=== PATIENT | female | born 1995 | race Caucasian/White ===

== ENCOUNTER 2020-01-02 10:57 | Inpatient (IN) | payer OTHER ==
[~2020-01-02] VITALS: Ht 162.6 cm; Wt 46.4 kg
[2020-01-02 12:08] LABS: HEMATOCRIT 34.4 % (36.0-47.0); HEMOGLOBIN 11.7 g/dl (12.0-15.5); MEAN CORPUSCULAR HEMOGLOBIN 30.2 pg (27.0-33.0); MEAN CORPUSCULAR VOLUME 88.7 fl (80.0-96.0); PLATELET COUNT, AUTOMATED 628 10^3/uL (150-450); RED BLOOD COUNT 3.88 10^6/uL (4.00-5.40); WHITE BLOOD COUNT 12.8 10^3/uL (4.0-10.0)
[2020-01-02 12:32] LABS: AMPHETAMINES LEVEL URINE NEGATIVE (NEGATIVE); BARBITURATES URINE NEGATIVE (NEGATIVE); BENZODIAZEPINES URINE NEGATIVE (NEGATIVE); CANNABINOIDS URINE POSITIVE (NEGATIVE); COCAINE METABOLITE URINE NEGATIVE (NEGATIVE); METHADONE URINE NEGATIVE (NEGATIVE); OPIATES URINE NEGATIVE (NEGATIVE); PHENCYCLIDINE URINE NEGATIVE (NEGATIVE)
[2020-01-02] MEDS ORDERED: HYDR-643 PO (12:46)
[2020-01-02 12:52] LABS: ACETAMINOPHEN LEVEL < 2.0 UG/ML (10.0-30.0); ALBUMIN 3.7 GM/DL (3.2-5.2); ALT/SGPT 38 U/L (12-78); BILIRUBIN,DIRECT 0.1 MG/DL (0.0-0.2); BILIRUBIN,TOTAL 0.4 MG/DL (0.2-1.0); BLOOD UREA NITROGEN 8 MG/DL (7-18); CALCIUM LEVEL 8.9 MG/DL (8.5-10.1); CARBON DIOXIDE LEVEL 27 MEQ/L (21-32); CHLORIDE LEVEL 99 MEQ/L (98-107); CREATININE FOR GFR 0.61 MG/DL (0.55-1.30); ETHYL ALCOHOL (ETHANOL) < 0.003 % (0.000-0.010); GLOMERULAR FILTRATION RATE > 60.0 (>60); GLUCOSE, FASTING 95 MG/DL (70-100); SALICYLATE LEVEL < 1.7 MG/DL (5.0-30.0); SODIUM LEVEL 136 MEQ/L (136-145); THYROID STIMULATING HORMONE 0.326 uIU/ML (0.358-3.740); TOTAL PROTEIN 7.7 GM/DL (6.4-8.2)
[2020-01-02 13:07] LABS: HCG, SERUM QUALITATIVE NEGATIVE (NEGATIVE)
[2020-01-02] MEDS ORDERED: MICR1TAB7 PO (13:52)
[2020-01-02] MEDS ORDERED: POTASSIUM CHLORIDE 10 MEQ SR TABLET PO ONE (15:00)
[2020-01-02] MEDS ORDERED: MOM 30ML SUSPENSION UDC PO PRN (17:00)
[2020-01-02] MEDS ORDERED: traZODone 50 MG TAB PO PRN (17:00)
[2020-01-02 20:50] VITALS: BP 118/74
[2020-01-02] MEDS: ONDANSETRON 4 MG ORAL DISINTEGRATING TAB PO PRN (23:24)
[2020-01-02] MEDS: OLANZapine ORAL DISINTEGRATING TAB 5MG PO PRN (23:24)
[2020-01-02] MEDS ORDERED: LORazepam 2 MG TAB PO ONE (23:45)
[2020-01-03] MEDS ORDERED: LORazepam 1 MG TAB PO PRN
[2020-01-03 06:14] VITALS: BP 108/69
[2020-01-03 07:51] LABS: BASO % 0.2 % (0.0-1.0); EOS # 0.1 10^3/uL (0.0-0.5); EOS % 0.4 % (0.0-3.0); HEMATOCRIT 33.5 % (36.0-47.0); HEMOGLOBIN 11.3 g/dl (12.0-15.5); LYMPH # 3.1 10^3/uL (1.5-5.0); LYMPH % 27.4 % (24.0-44.0); MEAN CORPUSCULAR HEMOGLOBIN 30.5 pg (27.0-33.0); MEAN CORPUSCULAR HGB CONC 33.7 g/dl (32.0-36.5); MEAN CORPUSCULAR VOLUME 90.3 fl (80.0-96.0); MONO # 0.6 10^3/uL (0.0-0.8); MONO % 5.7 % (0.0-5.0); NEUTROPHILS # 7.4 10^3/uL (1.5-8.5); NEUTROPHILS % 65.9 % (36.0-66.0); PLATELET COUNT, AUTOMATED 575 10^3/uL (150-450); RED BLOOD COUNT 3.71 10^6/uL (4.00-5.40); WHITE BLOOD COUNT 11.2 10^3/uL (4.0-10.0)
[2020-01-03 08:14] LABS: BLOOD UREA NITROGEN 9 MG/DL (7-18); CALCIUM LEVEL 8.9 MG/DL (8.5-10.1); CARBON DIOXIDE LEVEL 29 MEQ/L (21-32); CHLORIDE LEVEL 100 MEQ/L (98-107); GLOMERULAR FILTRATION RATE > 60.0 (>60); GLUCOSE, FASTING 75 MG/DL (70-100); POTASSIUM SERUM 3.3 MEQ/L (3.5-5.1); SODIUM LEVEL 137 MEQ/L (136-145)
--- NOTE | 2020-01-03 09:26 | MHHPEPDOC ---
General Date Of Admission: Jan 02, 2020 Legal Status: 04.08 Chief Complaint "I was really down. History of Present Illness HISTORY OF THE PRESENT ILLNESS: Patient is a 24 -year-old , female, who presented to 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 The patient reports that she is become increasingly unable to care for herself and began to worry that she would herself. General: Well dressed with good hygiene Speech: Spontaneous and fluid Thought processes: Linear and logical Thought content: hopelessness Abstract reasoning, and computation: Intact Description of associations: Intact Description of abnormal or psychotic thoughts: denies SI at this time Judgment: fair Insight: fair Orientation: Alert and orientated 3 Recent and remote memory: Intact Attention span and concentration: Intact Fund of knowledge: Adequate Mood: "okay" Affect: dysthymic, constricted . Past Psychiatric History Previous Psychiatric Diagnosis: depression. Previous Psychiatric Admissions: denies. Suicide Attempts: denies. Psychiatric Follow-up: [facility]. Psychiatric medications: tried Lexapro the past, ineffective. Past Medical History Medical Problems No notable Family Medical/Psychiatric HX Psychiatric Disorders: No Addiction: No Suicide Attemps/Completions: No Addiction History other (Cannabis) Social History Childhood: "fine" from [place]. Abuse/Trauma: denies. Current Living Situation: lives with . Education: high school. Employment: unemployed. Social Support: few. Legal: none noted. Marital: no children. Assessment 24-year-old woman with a history of depression presents with very severe depressive symptoms Problem List Problems: (1) Major depressive disorder, single episode, severe with anxious distress Status: Acute Response to Treatment: Uncontrolled Problem Text: Start Wellbutrin 150 mg daily, discussed risk, benefits and potential side effects. Screens negative procedures and eating disorder (2) Cannabis abuse Status: Chronic (3) Malnutrition Status: Acute Problem Text: Monitor for re-feeding syndrome (4) Suicidal ideations Status: Resolved Initial Treatment Plan 1. Patient was admitted on a 04.08 status. 2. Complete history was obtained. 3. With patients permission, family will be contacted and database will be expanded. 4. Patients medication regimen will be reviewed and changed accordingly. 5. Patient will be provided with protected environment. 6. Patient will be treated with individual, group, and milieu therapies. 7. Patient will receive supportive psych-education. 8. Discharge planning will commence immediately. 9. Outpatient follow-up treatment will be strongly recommended. 10. The initial treatment plan will focus initially on: Depression. Risk for suicide. ESTIMATED LENGTH OF STAY: 2-3 DAYS. TIME SPENT COUNSELING AND COORDINATING INITIAL CARE: 30 minutes. Vital Signs Vital Signs Date Time Temp Pulse Resp B/P (MAP) Pulse Ox O2 Delivery O2 Flow Rate FiO2 01/03/20 06:14 98.1 68 14 108/69 (82) Room Air 01/02/20 20:50 96 Laboratory Data 24H Labs Laboratory Tests 2 01/02/20 11:54: Nucleated Red Blood Cells % (auto) 0.0, Anion Gap 10, Glomerular Filtration Rate > 60.0, Calcium Level 8.9, Total Bilirubin 0.4, Direct Bilirubin 0.1, Aspartate Amino Transf (AST/SGOT) 21, Alanine Aminotransferase (ALT/SGPT) 38, Alkaline Phosphatase 65, Total Protein 7.7, Albumin 3.7, Albumin/Globulin Ratio 0.9L, Thyroid Stimulating Hormone (TSH) 0.326L, Human Chorionic Gonadotropin, Qual NEGATIVE, Salicylates Level < 1.7L, Urine Opiates Screen NEGATIVE, Urine Methadone Screen NEGATIVE, Acetaminophen Level < 2.0L, Urine Barbiturates Screen NEGATIVE, Urine Phencyclidine Screen NEGATIVE, Urine Amphetamines Screen NEGATIVE, Urine Benzodiazepines Screen NEGATIVE, Urine Cocaine Metabolite Screen NEGATIVE, Urine Cannabinoids Screen POSITIVEH, Ethyl Alcohol Level < 0.003 01/03/20 07:32: Nucleated Red Blood Cells % (auto) 0.0, Anion Gap 8, Glomerular Filtration Rate > 60.0, Calcium Level 8.9, Immature Granulocyte % (Auto) 0.4, Neutrophils (%) (Auto) 65.9, Lymphocytes (%) (Auto) 27.4, Monocytes (%) (Auto) 5.7H, Eosinophils (%) (Auto) 0.4, Basophils (%) (Auto) 0.2, Neutrophils # (Auto) 7.4, Lymphocytes # (Auto) 3.1, Monocytes # (Auto) 0.6, Eosinophils # (Auto) 0.1, Basophils # (Auto) 0.0 CBC/BMP Laboratory Tests 01/02/20 11:54 01/03/20 07:32 Medications Scheduled Norethindrone-E.estradiol-Iron (Microgestin Fe 1.5-30 Tab) 1 Each Tablet, 1 TAB PO DAILY, (Reported) Allergies Coded Allergies: escitalopram (Verified Adverse Reaction, Unknown, N/V, 01/02/20) SABINA KANG DO Jan 03, 2020 09:26
[2020-01-03 16:08] VITALS: BP 100/64
[2020-01-03] MEDS ORDERED: MIRTAZAPINE 7.5MG PER 1/2 TABLET PO SCH (21:00)
[2020-01-04 06:20] VITALS: BP 131/80
--- NOTE | 2020-01-04 09:39 | MHIPNPDOC ---
[facility] Progress Note Progress Note DOS: 01/04/2020 Patient met with today with nurse present for telehealth evaluation due to COVID Crisis Events Overnight: multiple episodes of vomiting Group Attendance:: and frequent Symptom changes (psych ROS): Affective: improving depression and loss of interest Psychotic:[None today] Anxiety: still reports great anxiety with somatic symptoms Staff Report: patient appears quite somatic and preoccupied Medical ROS: [Gen: -fevers, chills] [Cardio: -chest pain, palpations] [[place]: -SOB, cough] [Neuro: -tremors, msk stiffness] [Derm: -rash] MSE: Vitals: Below General: [Well dressed with good hygiene] Speech: [Spontaneous and fluid] Thought processes: [Linear and logical] Thought content: more Future orientated Abstract reasoning, and computation: [Intact] Description of associations: [Intact] Description of abnormal or psychotic thoughts:[Denies any suicidal or homicidal ideation. Denies any auditory or visual hallucinations. Does not appear to be responding to internal stimuli. Does not appear to be endorsing any bizarre or paranoid ideation.] Judgment: improving Insight: improving Orientation: [Alert and orientated 3] Recent and remote memory: [Intact] Attention span and concentration: [Intact] Fund of knowledge: [Adequate] Mood: ["okay"] Affect: more euthymic Vital Signs Vital Signs Date Time Temp Pulse Resp B/P (MAP) Pulse Ox O2 Delivery O2 Flow Rate FiO2 01/04/20 06:20 98.1 82 16 131/80 (97) 01/03/20 06:14 Room Air 01/02/20 20:50 96 Current Medications Current Medications Medications (Trade) Dose Ordered Sig/Aury Route PRN Reason Start Time Stop Time Status Last Admin Dose Admin Acetaminophen (Tylenol Tab) 650 mg Q6HP PRN PO HEADACHE or DISCOMFORT 01/02/20 17:00 Home Med (Med Rec Complete!) ASDIRECTED XX 01/02/20 14:00 01/02/20 13:54 DC Ibuprofen (Advil) 400 mg Q6HP PRN PO PAIN 01/02/20 17:00 Lorazepam (Ativan) 1 mg Q8HP PRN PO ANXIETY 01/03/20 00:00 01/04/20 08:58 Magnesium Hydroxide (Milk Of Magnesia) 30 ml DAILYPRN PRN PO CONSTIPATION 01/02/20 17:00 Mirtazapine (Remeron) 7.5 mg QHS PO 01/03/20 21:00 01/03/20 21:38 Olanzapine (ZyPREXA ZYDIS) 5 mg Q4HP PRN PO AGITATION 01/02/20 17:00 01/02/20 23:24 Ondansetron HCl (Zofran Odt) 4 mg Q4HP PRN PO NAUSEA OR VOMITING 01/02/20 23:15 01/02/20 23:24 Trazodone HCl (Desyrel) 50 mg QHSP PRN PO INSOMNIA 01/02/20 17:00 01/02/20 22:02 Allergies Coded Allergies: escitalopram (Verified Adverse Reaction, Unknown, N/V, 01/02/20) Problems (1) Major depressive disorder, single episode, severe with anxious distress Status: Acute Response to Treatment: Improving Problem Text: continue Wellbutrin 150 mg daily, add propranolol 10 mg BID PRN for anxiety, discontinue Ativan (2) Cannabis abuse Status: Chronic (3) Malnutrition Status: Acute Response to Treatment: Improving (4) Suicidal ideations Status: Resolved Plan / VTE VTE Prophylaxis Ordered?: No Plan Diet: Continue Current Activity: Continue Current Anticipated Discharge: Home (anticipate discharge late this week or early next week) SABINA KANG DO Jan 04, 2020 09:39
--- NOTE | 2020-01-04 09:48 | HPEPDOC ---
General Date of Admission Jan 02, 2020 at 16:57 Date of Service: Jan 04, 2020 Chief Complaint The patient is a 24-year-old female admitted with a reason for visit of Unspecified Depressive Disorder. Source: Patient Exam Limitations: No limitations Timing/Duration: Other (not applicable) Severity: Other (not applicable) Associated Symptoms: Other (. 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 Patient was admitted to inpatient mental health unit for further care and management Home Medications Scheduled Norethindrone-E.estradiol-Iron (Microgestin Fe 1.5-30 Tab) 1 Each Tablet, 1 TAB PO DAILY, (Reported) Allergies Coded Allergies: escitalopram (Verified Adverse Reaction, Unknown, N/V, 01/02/20) Past Medical History Medical History None Surgical History None Family History Family history reviewed. No history of diabetes or cancer Social History * Smoker: Denies Alcohol: Denies Drugs: marijuana A-FIB/CHADSVASC A-FIB History Current/History of A-Fib/PAF?: No Review of Systems Constitutional: Denies: Chills, Fever, Malaise, Night Sweats, Weakness, Fatigue, Weight Loss, Lethargy, Other Eyes: Denies: Pain, Vision change, Conjunctivae inflammation, Eyelid inflammation, Redness, Other ENT: Denies: Head Aches, Ear Pain, Dysphagia, Sinus Congestion, Post Nasal Drip, Sore Throat, Epistaxis, Other Symptoms Skin: Denies: Rash, Lesions, Jaundice, Bruising, Itching, Dry, Breakdown, Nail Changes, Other Pulmonary: Denies: Dyspnea, Cough, Pleuritic Chest Pain, Other Symptoms Cardiovascular: Denies: Chest Pain, Palpitations, Orthopnea, Paroxysmal Noc. Dyspnea, Edema, Lt Headedness, Other Symptoms Gastrointestinal: Denies: Nausea, Vomiting, Abdominal Pain, Diarrhea, Constipation, Melena, Hematochezia, Other Symptoms Genitourinary: Denies: Dysuria, Frequency, Incontinence, Hematuria, Retention, Other Symptoms Hematologic: Denies: Bruising, Bleeding Excessively, Petecchia, Purpura, Enlarged Lymph Nodes, Other Hematologic Endocrine: Denies: Polydipsia, Polyphagia, Polyuria, Heat Intolerance, Cold Intolerance, Other Endocrine Sx Musculoskeletal: Denies: Neck Pain, Back Pain, Shoulder Pain, Arm Pain, Hand Pain, Leg Pain, Foot Pain, Joint Pain, Muscle Pain, Spasms, Other Symptoms Neurological: Denies: Weakness, Numbness, Incoordination, Change in speech, Confusion, Seizures, Other Symptoms Psych: Reports: Other Psych (, suicidal) Physical Examination General Exam: Positive: Alert, Cooperative Eye Exam: Positive: PERRLA, Conjunctiva & lids normal ENT Exam: Positive: Atraumatic Neck Exam: Positive: Supple Chest Exam: Positive: Clear to auscultation, Normal air movement Heart Exam: Positive: Rate Normal, Normal S1, Normal S2 Abdomen Exam: Positive: Normal bowel sounds, Soft Extremity Exam: Positive: Normal pulses Skin Exam: Positive: Nl turgor and temperature Neuro Exam: Positive: Strength at 5/5 X4 ext, Sensation Intact, Cranial Nerves 3-12 NL Psych Exam: Positive: Mood NL, Oriented x 3 Vital Signs Vital Signs Date Time Temp Pulse Resp B/P (MAP) Pulse Ox O2 Delivery O2 Flow Rate FiO2 01/04/20 06:20 98.1 82 16 131/80 (97) 01/03/20 06:14 Room Air 01/02/20 20:50 96 Problems (1) Suicidal ideations Status: Acute Problem Text: Admitted to inpatient mental health unit with suicidal ideations secondary to severe depression Individual and group counseling, as per psych From [facility] will intervention and made adjustment as per psychiatry No medical intervention indicated at this time. Please call as needed (2) Cannabis abuse Status: Chronic Problem Text: History of cannabis abuse in the past Counseling done (3) Low TSH level Status: Acute Problem Text: . None specific probably secondary to malnutrition Will order a free T4 to check to rule out any hypothyroidism (4) Hypokalemia Status: Acute Problem Text: Probably secondary to poor dietary intake KCl 40 mg by mouth 1 given Will order repeat potassium and magnesium in a.m. Plan / VTE VTE Prophylaxis Ordered?: No VTE Exclusion Mechanical Proph: Low Risk for VTE VTE Exclusion Pharmacological: At Low Risk for VTE ANDRE HOUSTON MD Jan 04, 2020 09:48
[2020-01-04] MEDS ORDERED: PROPRANOLOL 10 MG TAB PO PRN (11:15)
[2020-01-04] MEDS ORDERED: POTASSIUM CHLORIDE 10 MEQ SR TABLET PO ONE (13:15)
[2020-01-04 16:09] VITALS: BP 121/81
[2020-01-04] MEDS: hydrOXYzine 25 MG TAB PO PRN (21:04)
[2020-01-04] MEDS: traZODone 50 MG TAB PO PRN (21:04)
[2020-01-05 06:29] VITALS: BP 122/68
[2020-01-05] MEDS: ONDANSETRON 4 MG ORAL DISINTEGRATING TAB PO PRN (08:07)
[2020-01-05] MEDS: OLANZapine ORAL DISINTEGRATING TAB 5MG PO PRN (08:10)
[2020-01-05 08:14] LABS: BLOOD UREA NITROGEN 6 MG/DL (7-18); CARBON DIOXIDE LEVEL 27 MEQ/L (21-32); CHLORIDE LEVEL 104 MEQ/L (98-107); CREATININE FOR GFR 0.73 MG/DL (0.55-1.30); FREE THYROXINE INDEX 5.1 % (1.3-4.8); GLOMERULAR FILTRATION RATE > 60.0 (>60); GLUCOSE, FASTING 86 MG/DL (70-100); MAGNESIUM LEVEL 2.4 MG/DL (1.8-2.4); POTASSIUM SERUM 4.3 MEQ/L (3.5-5.1); SODIUM LEVEL 140 MEQ/L (136-145); T UPTAKE 37 % (30-39); THYROXINE (T4) 13.8 UG/DL (4.5-12.0)
[2020-01-05] MEDS: IBUPROFEN 400 MG TAB PO PRN ×2 (08:51→18:23)
[2020-01-05] MEDS: ACETAMINOPHEN TAB 650MG DOSE (2X325MG) PO PRN ×2 (12:45→22:33)
--- NOTE | 2020-01-05 14:21 | MHIPNPDOC ---
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 The patient reports that she is become increasingly unable to care for herself and began to worry that she would herself." VITAL SIGNS: See below. NEW TEST RESULTS: See below CURRENT MEDICATIONS: See below. MENTAL STATUS EXAMINATION: Patient is a 24-year old female, who is alert, cooperative, good hygiene and grooming. Speech: Is normal in r/t/v/ Language skills are Intact Thought processes including: linear and coherent. Thought content: anxious thoughts, she is hopeful, she denies SI/HI. Description of associations: Intact Description of abnormal or psychotic thoughts: denies thought delusions, denies TAV hallucinations, denies SI/ HI. Judgment: improving. Insight: improving. Orientation: x 3. Recent and remote memory: intact. Attention span and concentration: good. Language: adequate. Fund of knowledge: average. Mood: mildly anxious. Affect: congruent with mood. DIAGNOSES: 1. Major depressive disorder, single episode, severe with anxious distress 2. Cannabis use disorder ASSESSMENT: Patient seems to be improving, she says she has been attending groups. She is still anxious but is less crippling than it was before. MANAGEMENT PLAN: Continue as per Dr. Mac TIME SPENT: 20 minutes. Vital Signs Vital Signs Date Time Temp Pulse Resp B/P (MAP) Pulse Ox O2 Delivery O2 Flow Rate FiO2 01/05/20 06:29 98.1 100 16 122/68 (86) 99 Room Air Laboratory Data 24H Labs Laboratory Tests 2 01/05/20 07:13: Anion Gap 9, Glomerular Filtration Rate > 60.0, Calcium Level 9.0, Magnesium L evel 2.4, Thyroid Stimulating Hormone (TSH) 1.490, Free Thyroxine Index 5.1H, Thyroxine (T4) 13.8H, Triiodothyronine (T3) Uptake 37 CBC/BMP Laboratory Tests 01/05/20 07:13 Current Medications Current Medications Medications (Trade) Dose Ordered Sig/Aury Route PRN Reason Start Time Stop Time Status Last Admin Dose Admin Acetaminophen (Tylenol Tab) 650 mg Q6HP PRN PO HEADACHE or DISCOMFORT 01/02/20 17:00 01/05/20 12:45 Home Med (Med Rec Complete!) ASDIRECTED XX 01/02/20 14:00 01/02/20 13:54 DC Hydroxyzine HCl (Atarax) 25 mg QHSP PRN PO INSOMNIA 01/04/20 11:15 01/04/20 21:04 Ibuprofen (Advil) 400 mg Q6HP PRN PO PAIN 01/02/20 17:00 01/05/20 08:51 Lorazepam (Ativan) 1 mg Q8HP PRN PO ANXIETY 01/03/20 00:00 01/04/20 11:03 DC 01/04/20 08:58 Magnesium Hydroxide (Milk Of Magnesia) 30 ml DAILYPRN PRN PO CONSTIPATION 01/02/20 17:00 Mirtazapine (Remeron) 7.5 mg QHS PO 01/03/20 21:00 01/04/20 11:03 DC 01/03/20 21:38 Olanzapine (ZyPREXA ZYDIS) 5 mg Q4HP PRN PO AGITATION 01/02/20 17:00 01/05/20 08:10 Ondansetron HCl (Zofran Odt) 4 mg Q4HP PRN PO NAUSEA OR VOMITING 01/02/20 23:15 01/05/20 08:07 Propranolol HCl (Inderal) 10 mg BIDP PRN PO anxiety 01/04/20 11:15 Trazodone HCl (Desyrel) 50 mg QHSP PRN PO INSOMNIA 01/02/20 17:00 01/04/20 11:04 DC 01/02/20 22:02 Trazodone HCl (Desyrel) 100 mg QHSP PRN PO INSOMNIA 01/04/20 11:15 01/04/20 21:04 Allergies Coded Allergies: escitalopram (Verified Adverse Reaction, Unknown, N/V, 01/02/20) NEFTALY SANDOVAL MD Jan 05, 2020 14:07
[2020-01-05 17:50] VITALS: BP 103/55
[2020-01-05] MEDS: traZODone 50 MG TAB PO PRN (22:32)
[2020-01-05] MEDS: hydrOXYzine 25 MG TAB PO PRN (22:32)
[2020-01-06] MEDS: IBUPROFEN 400 MG TAB PO PRN (02:20)
[2020-01-06 07:01] VITALS: BP 93/54
[2020-01-06] MEDS: ACETAMINOPHEN TAB 650MG DOSE (2X325MG) PO PRN (07:44)
[2020-01-06 08:34] VITALS: BP 129/89
--- NOTE | 2020-01-06 09:20 | MHDSPDOC ---
[facility] Discharge Summary Discharge Summary DATE OF ADMISSION: Jan 02, 2020 at 16:57 DATE OF DISCHARGE: Jan 06, 2020 at 12:40 DISCHARGE DIAGNOSES: See Problem list below REASON FOR ADMISSION: 22-year-old woman admitted with severe depression CONSULTANTS INVOLVED:[ None (basic hospitalist screening)] TREATMENT AND PROGRESS ON THE UNIT : Medication changes: started on Remeron 7.5 mg nightly, augmented with 10 mg of propranolol BID with positive effects restoring her back to a euthymic affect Behavior on unit: initially fairly depressed but became much more engaged Treatment attendance:, more engaged as she progressed Notable issues on presentation: none State on discharge: [improved] DISCHARGE ASSESSMENT: The patient a 24-year-old year old woman, with likely depression, presented to [facility], where they make significant progress with appropriate agents. Legal status considerations: The patient at the time of discharge did not meet criteria for involuntary admission/extension due to having a [normal] mental status exam, [fair] insight into the situation, They are engaged in the discharge process, as well as being friendly and amenable in behavioral control and havent been engaging in any observed concerning behavior or ideation recently. They decline voluntary extension/admission at this time and must be discharged in good keri, as Im unable to make a case for holding the patient against their will. They may have historical risk factors of admissions and other interactions with psychiatry however, those are not modifiable from a clinical perspective. The patient will need to be discharged in good keri. MENTAL STATUS EXAMINATION ON DISCHARGE: [General: Well dressed with good hygiene Speech: Spontaneous and fluid Thought processes: Linear and logical Thought content: Future orientated Abstract reasoning, and computation: Intact Description of associations: Intact Description of abnormal or psychotic thoughts:Denies any suicidal or homicidal ideation. Denies any auditory or visual hallucinations. Does not appear to be responding to internal stimuli. Does not appear to be endorsing any bizarre or paranoid ideation. Judgment: fair Insight: fair Orientation: Alert and orientated 3 Recent and remote memory: Intact Attention span and concentration: Intact Fund of knowledge: Adequate Mood: "okay" Affect: Euthymic with a full range] PLAN/FOLLOWUP ARRANGEMENTS: Follow up appointments made (PCP and MH in 5 days of D/C date) and safety plan completed. Safety Planning aspects completed prior to discharge [SAFE ACT reported on initial invol admission in ER] [Medication supplies limited to 7 days with 4 refills to prevent accumulation to OD] [Family contact completed, educated on safe practices, instructed on removal and mitigation of dangerous means] [RN reviewed crisis hotline information and other aspects to empower patient to access care in interim before next appointment.] The amount of time spent in the coordination of care for this patient was approximately 30 minutes. Vital Signs/I&Os Vital Signs Date Time Temp Pulse Resp B/P (MAP) Pulse Ox O2 Delivery O2 Flow Rate FiO2 01/06/20 08:34 98 129/89 01/06/20 07:01 97.1 12 98 Room Air Medications Scheduled Mirtazapine (Mirtazapine) 7.5 Mg Tablet, 1 TAB PO QPM for mood for 7 Days, #7 Norethindrone-E.estradiol-Iron (Microgestin Fe 1.5-30 Tab) 1 Each Tablet, 1 TAB PO DAILY, (Reported) Scheduled PRN Propranolol HCl (Propranolol HCl) 10 Mg Tablet, 10 MG PO BIDP PRN for anxiety for 7 Days, #14 Allergies Coded Allergies: escitalopram (Verified Adverse Reaction, Unknown, N/V, 01/02/20) Problems (1) Major depressive disorder, single episode, severe with anxious distress Status: Resolved Problem Text: continue Wellbutrin 150 mg daily, add propranolol 10 mg BID PRN for anxiety, discontinue Ativan (2) Cannabis abuse Status: Chronic (3) Malnutrition Status: Resolved (4) Suicidal ideations Status: Resolved Plan / VTE VTE Prophylaxis Ordered?: SABINA Temple DO Jan 06, 2020 09:20
[2020-01-06] MEDS ORDERED: PROP10TA56 PO (10:27)
[2020-01-06] MEDS ORDERED: MIRT1TAB PO (10:27)
== END 2020-01-06 12:40 | disposition home or self-care (01) | DRG 885 ==
LOC: M ED 10:57 → M ED INP 16:57 → M PSY 20:10
PROVIDERS: ADMIT Psychiatry & Neurology Addiction Medicine; ATTEND Psychiatry & Neurology Addiction Medicine
DX: F32.2 Major depressive disorder, single episode, severe without psychotic features (principal); E46 Unspecified protein-calorie malnutrition; E87.6 Hypokalemia; Z63.31 Absence of family member due to military deployment; F12.10 Cannabis abuse, uncomplicated; Z88.8 Allergy status to other drugs, medicaments and biological substances; Z79.899 Other long term (current) drug therapy